=== PATIENT | female | born 1990 | race African-American/Black ===

== ENCOUNTER → 2019-07-15 | Outpatient (CLI) | payer OTHER | END | disposition home or self-care (01) | LOC: LAB 15:58 | PROVIDERS: ATTEND Obstetrics & Gynecology | DX: Z01.411 Encounter for gynecological examination (general) (routine) with abnormal findings (principal); Z20.2 Contact with and (suspected) exposure to infections with a predominantly sexual mode of transmission | CPT/HCPCS: 86592; 86695; 86696; 86703 ==

== ENCOUNTER → 2019-09-02 | Outpatient (CLI) | payer OTHER ==
--- NOTE | 2019-09-02 15:20 | RAD ---
EXAM: OBSTETRIC ULTRASOUND, <14 WEEKS. HISTORY: Pelvic pain in . COMPARISON: None. FINDINGS: Sonographic evaluation of the pelvis was performed transabdominally and transvaginally. The uterus is neutral in position and measures 11.7 x 5.3 x 7.1 cm. No intrauterine gestation is identified. Endometrial thickness is 13 mm. The right ovary measures 6.1 x 4.6 x 4.5 cm. It contains a cyst or dominant follicle measuring 4.6 x 4.3 x 4.0 cm. It contains some debris dependently. No internal perfusion is identified. The left ovary measures 3.6 x 2.1 x 2.0 cm. There is normal Doppler flow bilaterally. There is no adnexal mass. There is no significant free fluid. IMPRESSION: 1. No intrauterine gestation or suspicious adnexal mass is identified. Correlate with quantitative beta hCG to determine if this is appropriate. Ongoing follow-up of quantitative beta hCG is recommended. 2. 4.6 cm complicated right ovarian cyst or follicle. This could be followed to confirm resolution. Electronically signed by: Prabha Bains MD (09/02/2019 3:17 PM) [id number]
== END | disposition home or self-care (01) ==
LOC: US 13:34
PROVIDERS: ATTEND Nurse Practitioner
DX: O00.90 Unspecified ectopic pregnancy without intrauterine pregnancy (principal); N83.201 Unspecified ovarian cyst, right side
CPT/HCPCS: 76801; 76817